=== PATIENT | female | born 1995 | race Caucasian/White ===

== ENCOUNTER 2017-01-08 19:44 | Emergency (ER) | payer OTHER ==
[~2017-01-08] VITALS: Ht 167.6 cm; Wt 61.4 kg
[~2017-01-08 19:44] MED LIST: DOXYCYCLINE75 M1 PO
[2017-01-08] MEDS ORDERED: PERCOCET 325 MG1 TA2 PO (23:11)
[2017-01-08] MEDS ORDERED: ZOFRAN ODT8 M1 PO (23:44)
[2017-01-08 23:51] VITALS: BP 101/61
== END 2017-01-08 23:54 | disposition home or self-care (01) ==
LOC: ED 19:44
DX: R10.31 Right lower quadrant pain (principal); N83.01 Follicular cyst of right ovary; N83.11 Corpus luteum cyst of right ovary; R11.2 Nausea with vomiting, unspecified
CPT/HCPCS: J1885; J2270; J2405; J7030; Q9967

== ENCOUNTER → 2018-05-06 | Outpatient (CLI) | payer OTHER ==
[~2018-05-06] MED LIST changes: +PERCOCET 325 MG1 TA2 PO; +ZOFRAN ODT8 M1 PO
[2018-05-06 15:25] LABS: HEMATOCRIT 38.9 % (37.0-47.0); HEMOGLOBIN 12.9 g/dL (12.5-16.0); MEAN CELL VOLUME 91 fl (78-100); MEAN CORPUSCULAR HEMOGLOBIN 30 pg (27-31); MEAN CORPUSCULAR HGB CONC 33 g/dL (33-37); MEAN PLATELET VOLUME 10.3 fl (7.4-10.4); PLATELET COUNT 253 K/mm3 (130-400); RED CELL DISTRIBUTION WIDTH 12.6 % (11.5-14.5); WHITE BLOOD COUNT 11.8 K/mm3 (4.8-10.8)
[2018-05-06 15:28] LABS: ALBUMIN 4.1 g/dL (3.5-5.0); BUN/CREATININE RATIO 9.8 (6.0-26.0); CALCIUM 8.6 mg/dL (8.4-10.2); POTASSIUM 3.5 mmol/L (3.6-5.0); TOTAL BILIRUBIN 0.6 mg/dL (0.2-1.3); TOTAL PROTEIN 8.1 g/dL (6.3-8.2)
[2018-05-06 15:55] LABS: URINE WBC >50 /hpf (0-3)
[2018-05-06 16:08] LABS: LYMPHOCYTE 13 % (20-51); MONOCYTE 7 % (3-10); NEUTROPHILS 80 % (42-75)
== END ==
LOC: LAB 15:01
PROVIDERS: Nurse Practitioner Family
DX: R53.81 Other malaise (principal); R11.0 Nausea; R19.7 Diarrhea, unspecified; R82.90 Unspecified abnormal findings in urine; N92.6 Irregular menstruation, unspecified

== ENCOUNTER → 2019-01-12 | Outpatient (CLI) | payer OTHER ==
[2019-01-12 17:59] LABS: URINE APPEARANCE CLEAR; URINE COLOR YELLOW
[2019-01-12 18:00] LABS: PH-URINE 5.5 (5.0 - 8.0); URINE BILIRUBIN NEGATIVE (NEGATIVE); URINE BLOOD NEGATIVE (NEGATIVE); URINE GLUCOSE NEGATIVE (NEGATIVE); URINE KETONE NEGATIVE (NEGATIVE); URINE LEUKOCYTE ESTERASE NEGATIVE (NEGATIVE); URINE NITRATE NEGATIVE (NEGATIVE); URINE PROTEIN(semi-quant) TRACE mg/dL (NEGATIVE); URINE UROBILINOGEN NORMAL (NORMAL); URINE WBC 0-1 /hpf (0-3)
== END ==
LOC: LAB 16:57
PROVIDERS: Nurse Practitioner
DX: R30.0 Dysuria (principal)